=== PATIENT | female | born 1985 | race Caucasian/White ===

== ENCOUNTER 2019-05-18 16:00 | Observation (INO) | payer BC ==
[2019-05-18] MEDS ORDERED: MORPHINE SULFATE 2 MG INJ IV PRN (16:59)
[2019-05-18] MEDS ORDERED: Zofran 4 MG/2 ML VIAL IV PRN (17:00)
[2019-05-18] MEDS ORDERED: Sodium Chloride 0.9% 1000 ML 1,000 ML IV SCH (17:00)
[2019-05-18] MEDS ORDERED: BACTRIM DS TABLET PO ONE (19:39)
[2019-05-18 19:45] VITALS: BP 121/81; PULSE 107; O2SAT 96
[2019-05-18] MEDS ORDERED: BACTRIM DS TABLET PO SCH (20:00)
--- NOTE | 2019-05-19 09:02 | XRAY ---
Indication: Left abdomen pain 3 days. Possible obstruction. UTI. Hernia. Multiple contiguous axial images obtained through the abdomen and pelvis prior to and following 80 cc Isovue 370 contrast only. Comparison: None Lung bases are clear. Heart is not enlarged. Noncontrasted images demonstrates nonobstructing right renal punctate calculus. No other visceral calcifications/calculi. Noncontrasted stomach and bowel loops appear nonobstructed. Normal appendix. Mild scattered colonic diverticulosis without diverticulitis. A few bilateral ovary cysts, largest on the right measuring 2.6 cm. No free fluid/air. Postcontrast images demonstrates normal visceral enhancement and renal excretion. Liver is enlarged measuring 20 cm in CC dimension. Spleen is also enlarged measuring 16 cm in CC dimension. Remaining liver, gallbladder, pancreas, spleen, adrenal glands, kidneys, ureters, bladder, uterus, and aorta appear unremarkable. No pathologic retroperitoneal lymphadenopathy. Osseous structures intact. Impression: 1. Nonobstructing right renal micro-calculus. 2. Hepatosplenomegaly, colonic diverticulosis, and bilateral ovary cysts. 3. Remaining CT abdomen/pelvis with and without contrast exam is negative. CTDI 23.48
== END 2019-05-18 21:16 | disposition home or self-care (01) ==
LOC: MED SURG 16:04
PROVIDERS: ADMIT Family Medicine; ATTEND Family Medicine
DX: R10.9 Unspecified abdominal pain (principal); N39.0 Urinary tract infection, site not specified
CPT/HCPCS: 36415; 74178; 80053; 81015; 82150; 83690; 85025; 87086; G0378; A9270-GY

== ENCOUNTER 2021-01-13 08:48 | Emergency (ER) | payer BC ==
[2021-01-13] MEDS ORDERED: BABY ASPIRIN 81 MG CHEW PO ONE (09:06)
[2021-01-13] MEDS ORDERED: Ativan 2 MG/1 ML VIAL IV ONE (09:08)
--- NOTE | 2021-01-13 09:18 | ERPHSYRPT ---
- History of Present Illness Time Seen by Provider: 01/13/21 08:55 Historian: patient, family Exam Limitations: clinical condition Physician History: This is a 35-year-old white female who has a history of bipolar disorder and is on Adipex medication who presents with onset of chest pain last night. She began having perioral facial numbness and numbness in her hands this morning. The chest pain was worsening. Patient arrives to the emergency department extremely anxious and hyperventilating. She did start a new bipolar disorder medication approximately 1 week ago. Patient denies illicit drug use. Patient has a family history of blood clots. Patient did receive one baby aspirin prior to arrival. She has no known cardiac disease. Her chest pain is sharp substernal radiating up into her neck and into her back. Timing/Duration: yesterday Activities at Onset: none Quality: sharpness, stabbing Location: substernal Chest Pain Radiation: neck, back Severity of Pain-Max: moderate Severity of Pain-Current: mild Modifying Factors: Improves With: nothing Prior Chest Pain/Cardiac Workup: no prior chest pain, no prior cardiac workup Nitro Today/Relief: no nitro taken today Aspirin Treatment Today: 81 mg x 1, provided at home Allergies/Adverse Reactions: No Known Drug Allergies Allergy (Verified 01/13/21 09:18) Home Medications: Phentermine HCl [Adipex-P] 37.5 mg PO DAILY 01/13/21 [History] Venlafaxine HCl ER 37.5 mg [Effexor ER 37.5 MG] 37.5 mg PO DAILY 01/13/21 [History] Travel Risk - International Travel Have you traveled outside of the country in past 3 weeks: No - Coronavirus Screening Are you exhibiting any of the following symptoms?: No Close contact with a COVID-19 positive Pt in past 14-21 Days: No - Vaccine Status Have you recieved a Covid-19 vaccination: Yes [employer]: Moderna - Review of Systems Constitutional: No Symptoms Eyes: No Symptoms Ears, Nose, & Throat: No Symptoms Respiratory: Dyspnea Cardiac: Chest Pain Abdominal/Gastrointestinal: No Symptoms Genitourinary Symptoms: No Symptoms Musculoskeletal: No Symptoms Skin: No Symptoms Neurological: No Symptoms Psychological: No Symptoms Endocrine: No Symptoms Hematologic/Lymphatic: No Symptoms Immunological/Allergic: No Symptoms All Other Systems: Reviewed and Negative - Past Medical History Pertinent Past Medical History: Yes Neurological History: No Pertinent History ENT History: No Pertinent History Cardiac History: No Pertinent History Respiratory History: No Pertinent History Endocrine Medical History: No Pertinent History Musculoskeletal History: No Pertinent History GI Medical History: Other History: No Pertinent History Psycho-Social History: No Pertinent History Female Reproductive Disorders: Endometriosis Other Medical History: IBS, hernia - Past Surgical History Past Surgical History: Yes Neuro Surgical History: No Pertinent History Cardiac: No Pertinent History Respiratory: No Pertinent History Gastrointestinal: No Pertinent History Genitourinary: No Pertinent History Musculoskeletal: No Pertinent History Female Surgical History: Section Other Surgical History: Ovarian cyst removed, facial reconstruction - Social History Smoking Status: Current every day smoker How long have you smoked: 3 month Drug Use: none - Female History Hx Now: No - Nursing Vital Signs Nursing Vital Signs: Initial Vital Signs Temperature 98.2 F 01/13/21 08:51 Pulse Rate 110 H 01/13/21 08:51 Respiratory Rate 32 H 01/13/21 08:51 Blood Pressure 118/103 01/13/21 08:51 O2 Sat by Pulse Oximetry 100 01/13/21 08:51 Pain Scale Pain Intensity 0 - Physical Exam General Appearance: moderate distress, alert, anxiety, obese Eye Exam: PERRL/EOMI, eyes nml inspection Ears, Nose, Throat Exam: normal ENT inspection, moist mucous membranes Neck Exam: normal inspection, non-tender, supple, full range of motion Respiratory Exam: normal breath sounds, chest tenderness, lungs clear, airway intact, No respiratory distress Cardiovascular Exam: tachycardia Gastrointestinal/Abdomen Exam: soft, normal bowel sounds, No tenderness Pelvic Exam: not done Rectal Exam: not done Back Exam: normal inspection, normal range of motion, No CVA tenderness, No vertebral tenderness Neurologic Exam: alert, oriented x 3, cooperative, sap bw consultant II-XII nml as tested, normal mood/affect, nml cerebellar function, nml station & gait, sensation nml Skin Exam: normal color, warm, dry Lymphatic Exam: No adenopathy SpO2 Interpretation: normal O2 Delivery: Room Air - Course Nursing assessment & vital signs reviewed: Yes EKG Interpreted by Me: RATE ([id number]), Sinus Tach, NORMAL AXIS, NORMAL INTERVALS, NORMAL QRS, NORMAL ST-T, Other (Changes on today's EKG. There is no comparison EKG available) Ordered Tests: Active Orders 24 hr Category Date Time Status EKG-ER Only STAT Care 01/13/21 09:06 Active IV Insertion STAT Care 01/13/21 09:06 Active Pulse Oximetry (ED) STAT Care 01/13/21 09:06 Active CHEST 1 VIEW (PORTABLE) Stat Exams 01/13/21 09:07 Taken HEAD WITHOUT CONTRAST [CT] Stat Exams 01/13/21 09:09 Taken CBC W DIFF Stat Lab 01/13/21 09:05 Completed CMP Stat Lab 01/13/21 09:05 Completed D-DIMER QUANTITATIVE Stat Lab 01/13/21 09:05 Completed MAGNESIUM Stat Lab 01/13/21 09:05 Completed NT PRO BNP Stat Lab 01/13/21 09:05 Completed PROTIME WITH INR Stat Lab 01/13/21 09:05 Completed T4 (Thyroxine) Stat Lab 01/13/21 09:05 Completed TROPONIN Q3H Lab 01/13/21 09:05 Completed TROPONIN Q3H Lab 01/13/21 12:15 Ordered TROPONIN Q3H Lab 01/13/21 15:15 Ordered TROPONIN Q3H Lab 01/13/21 18:15 Ordered TROPONIN Q3H Lab 01/13/21 21:15 Ordered TSH, 3RD Generation Stat Lab 01/13/21 09:05 Completed UA W/RFX UR CULTURE Stat Lab 01/13/21 10:50 Completed Urine Triage Profile Stat Lab 01/13/21 11:05 Ordered Medication Summary Discontinued Medications Generic Name Dose Route Start Last Admin Trade Name Freq PRN Reason Stop Dose Admin Aspirin 162 mg 01/13/21 09:06 01/13/21 10:21 Baby Aspirin 81 Mg Chew PO 01/13/21 09:07 162 mg STAT ONE Administration Lorazepam 1 mg 01/13/21 09:08 01/13/21 09:22 Ativan 2 Mg/1 Ml Vial IV 01/13/21 09:09 1 mg STAT ONE Administration Lorazepam Confirm 01/13/21 09:20 Ativan 2 Mg/1 Ml Vial Administered 01/13/21 09:21 Dose 2 mg .ROUTE .STK-MED ONE Lab/Rad Data: Laboratory Result Diagrams 01/13/21 09:05 01/13/21 09:05 Laboratory Results 01/13/21 01/13/21 01/13/21 Range/Units 10:50 09:05 09:05 WBC (4.0-10.5) K/mm3 RBC (4.1-5.4) M/mm3 Hgb (12.0-16.0) gm/dl Hct (35-47) % MCV (78-100) fl MCH (26-32) pg MCHC (32-36) g/dl RDW (11.5-14.0) % Plt Count (150-450) K/mm3 MPV (7.5-11.0) fl Gran % (36.0-66.0) % Eos # (Auto) (0-0.5) Absolute Lymphs (auto) (1.0-4.6) Absolute Monos (auto) (0.0-1.3) Lymphocytes % (24.0-44.0) % Monocytes % (0.0-12.0) % Eosinophils % (0.00-5.0) % Basophils % (0.0-0.4) % Absolute Granulocytes (1.4-6.9) Basophils # (0-0.4) PT (9.95-12.35) SECONDS INR (0.8-3.0) D-Dimer (215-500) ng/mL Sodium (137-145) mmol/L Potassium (3.5-5.1) mmol/L Chloride (98-107) mmol/L Carbon Dioxide (22-30) mmol/L Anion Gap (5-15) MEQ/L BUN (7-17) mg/dL Creatinine (0.52-1.04) mg/dL Estimated GFR ML/MIN Glucose (74-106) mg/dL Calcium (8.4-10.2) mg/dL Magnesium 1.8 (1.6-2.3) mg/dL Total Bilirubin (0.2-1.3) mg/dL AST (14-36) U/L ALT (0-35) U/L Alkaline Phosphatase (38-126) U/L Troponin I < 0.012 (0.000-0.034) ng/mL NT-Pro-B Natriuret Pep (0-450) pg/mL Serum Total Protein (6.3-8.2) g/dL Albumin (3.5-5.0) g/dL Thyroxine (T4) 10.2 (5.53-10.96) ug/dL TSH 3rd Generation 5.020 H (0.47-4.68) mIU/L Urine Color YELLOW (YELLOW) Urine Appearance CLEAR (CLEAR) Urine pH 8.0 (5-6) Ur Specific [place] 1.010 (1.005-1.025) Urine Protein NEGATIVE (Negative) Urine Ketones NEGATIVE (NEGATIVE) Urine Blood SMALL (0-5) Ming/ul Urine Nitrite NEGATIVE (NEGATIVE) Urine Bilirubin NEGATIVE (NEGATIVE) Urine Urobilinogen NEGATIVE (0-1) mg/dL Ur Leukocyte Esterase NEGATIVE (NEGATIVE) Urine WBC (Auto) 0-2 (0-5) /HPF Urine RBC (Auto) NONE (0-2) /HPF U Epithel Cells (Auto) NONE (FEW) /HPF Urine Bacteria (Auto) NONE SEEN (NEGATIVE) /HPF Urine Mucus (Auto) SLIGHT (NEGATIVE) /HPF Urine Culture Reflexed NO (NO) Urine Glucose NEGATIVE (NEGATIVE) mg/dL 01/13/21 01/13/21 01/13/21 Range/Units 09:05 09:05 09:05 WBC 10.1 (4.0-10.5) K/mm3 RBC 5.34 (4.1-5.4) M/mm3 Hgb 14.5 (12.0-16.0) gm/dl Hct 45.8 (35-47) % MCV 85.8 (78-100) fl MCH 27.2 (26-32) pg MCHC 31.7 L (32-36) g/dl RDW 15.2 H (11.5-14.0) % Plt Count 336 (150-450) K/mm3 MPV 10.1 (7.5-11.0) fl Gran % 65.1 (36.0-66.0) % Eos # (Auto) 0.24 (0-0.5) Absolute Lymphs (auto) 2.61 (1.0-4.6) Absolute Monos (auto) 0.63 (0.0-1.3) Lymphocytes % 25.8 (24.0-44.0) % Monocytes % 6.2 (0.0-12.0) % Eosinophils % 2.4 (0.00-5.0) % Basophils % 0.5 (0.0-0.4) % Absolute Granulocytes 6.60 (1.4-6.9) Basophils # 0.05 (0-0.4) PT 13.3 H (9.95-12.35) SECONDS INR 1.18 (0.8-3.0) D-Dimer 226 (215-500) ng/mL Sodium 139 (137-145) mmol/L Potassium 4.8 (3.5-5.1) mmol/L Chloride 103 (98-107) mmol/L Carbon Dioxide 20 L (22-30) mmol/L Anion Gap 19.6 H (5-15) MEQ/L BUN 7 (7-17) mg/dL Creatinine 0.73 (0.52-1.04) mg/dL Estimated GFR > 60.0 ML/MIN Glucose 103 (74-106) mg/dL Calcium 9.6 (8.4-10.2) mg/dL Magnesium (1.6-2.3) mg/dL Total Bilirubin 0.50 (0.2-1.3) mg/dL AST 24 (14-36) U/L ALT 18 (0-35) U/L Alkaline Phosphatase 82 (38-126) U/L Troponin I (0.000-0.034) ng/mL NT-Pro-B Natriuret Pep 501 H (0-450) pg/mL Serum Total Protein 6.8 (6.3-8.2) g/dL Albumin 4.2 (3.5-5.0) g/dL Thyroxine (T4) (5.53-10.96) ug/dL TSH 3rd Generation (0.47-4.68) mIU/L Urine Color (YELLOW) Urine Appearance (CLEAR) Urine pH (5-6) Ur Specific [place] (1.005-1.025) Urine Protein (Negative) Urine Ketones (NEGATIVE) Urine Blood (0-5) Ming/ul Urine Nitrite (NEGATIVE) Urine Bilirubin (NEGATIVE) Urine Urobilinogen (0-1) mg/dL Ur Leukocyte Esterase (NEGATIVE) Urine WBC (Auto) (0-5) /HPF Urine RBC (Auto) (0-2) /HPF U Epithel Cells (Auto) (FEW) /HPF Urine Bacteria (Auto) (NEGATIVE) /HPF Urine Mucus (Auto) (NEGATIVE) /HPF Urine Culture Reflexed (NO) Urine Glucose (NEGATIVE) mg/dL - Progress Progress: improved, re-examined Air Movement: good Progress Note: 06/06/21 10:25 CAT scan of the head shows no acute intracranial abnormality. Chest x-ray shows no acute cardiopulmonary process. Blood Culture(s) Obtained: No Antibiotics given: No Counseled pt/family regarding: lab results, diagnosis, need for follow-up, rad results - Departure Departure Disposition: Home Clinical Impression: Chest pain Condition: Stable Critical Care Time: No Referrals: ARETHA WAGONER MD [Primary Care Provider] - Additional Instructions: Call your prescribing doctor tomorrow to discuss your medications and the possibility of any drug interactions.
[2021-01-13] MEDS ORDERED: Ativan 2 MG/1 ML VIAL ONE (09:20)
[2021-01-13 09:55] LABS: BASOPHIL % 0.5 % (0.0-0.4); Basophil (Absolute #) 0.05 (0-0.4); Eosinophil % 2.4 % (0.00-5.0); Eosinophil (Absolute #) 0.24 (0-0.5); Hematocrit 45.8 % (35-47); Hemoglobin 14.5 gm/dl (12.0-16.0); Lymphocyte (Absolute #) 2.61 (1.0-4.6); Lymphocytes % 25.8 % (24.0-44.0); Mean Cell Volume 85.8 fl (78-100); Mean Corpuscular Hemoglobin 27.2 pg (26-32); Mean Corpuscular Hgb Concent. 31.7 g/dl (32-36); Mean Platelet Volume 10.1 fl (7.5-11.0); Monocyte (Absolute #) 0.63 (0.0-1.3); Monocytes % 6.2 % (0.0-12.0); Neutrophil % 65.1 % (36.0-66.0); Platelet Count 336 K/mm3 (150-450); Red Blood Count 5.34 M/mm3 (4.1-5.4); Red Cell Distribution Width 15.2 % (11.5-14.0); White Blood Count 10.1 K/mm3 (4.0-10.5)
[2021-01-13 10:03] LABS: INR 1.18 (0.8-3.0); PROTIME 13.3 SECONDS (9.95-12.35)
[2021-01-13 10:17] LABS: ALBUMIN 4.2 g/dL (3.5-5.0); ALKALINE PHOSPHATASE 82 U/L (38-126); ANION GAP 19.6 MEQ/L (5-15); BLOOD UREA NITROGEN 7 mg/dL (7-17); CHLORIDE 103 mmol/L (98-107); Calcium 9.6 mg/dL (8.4-10.2); Carbon Dioxide 20 mmol/L (22-30); Creatinine 1 0.73 mg/dL (0.52-1.04); EST GLOMERULAR FILTRATION RATE > 60.0 ML/MIN; Glucose 103 mg/dL (74-106); NT PRO BNP 501 pg/mL (0-450); Potassium 4.8 mmol/L (3.5-5.1); SGOT/AST 24 U/L (14-36); SGPT/ALT 18 U/L (0-35); SODIUM 139 mmol/L (137-145); Total Protein 6.8 g/dL (6.3-8.2)
[2021-01-13 10:39] LABS: MAGNESIUM 1.8 mg/dL (1.6-2.3); T4 (Thyroxine) 10.2 ug/dL (5.53-10.96); TSH, 3RD Generation 5.02 mIU/L (0.47-4.68)
[2021-01-13 11:02] LABS: Appearance CLEAR (CLEAR); Bilirubin NEGATIVE (NEGATIVE); Blood SMALL Ery/ul (0-5); Glucose NEGATIVE (NEGATIVE); Ketones NEGATIVE (NEGATIVE); Leukocyte Esterase NEGATIVE (NEGATIVE); Mucus SLIGHT /HPF (NEGATIVE); Nitrite NEGATIVE (NEGATIVE); Protein,Urine Dip NEGATIVE (Negative); Urobilinogen NEGATIVE mg/dL (0-1); WBC 0-2 /HPF (0-5)
[2021-01-13 11:03] LABS: Bacteria NONE SEEN /HPF (NEGATIVE)
[2021-01-13 11:05] VITALS: BP 136/98; PULSE 103; O2SAT 99
[2021-01-13 11:23] LABS: Amphetamine,Urine NEGATIVE (NEGATIVE); Barbiturate,Urine NEGATIVE (NEGATIVE); Benzodiazepine,Urine NEGATIVE (NEGATIVE); Cocaine,Urine NEGATIVE (NEGATIVE); Methadone,Urine NEGATIVE (NEGATIVE); Opiate,Urine NEGATIVE (NEGATIVE); PCP,Urine NEGATIVE (NEGATIVE); THC,Urine NEGATIVE (NEGATIVE)
--- NOTE | 2021-01-13 19:10 | XRAY ---
Indication: Chest pain. Comparison: None Portable chest demonstrates normal heart and lungs. Bony thorax intact.
--- NOTE | 2021-01-13 19:12 | XRAY ---
Indication: Facial and bilateral upper extremity numbness. Chest pain. Multiple contiguous axial images obtained through the head without contrast. Comparison: None Normal appearing brain parenchyma, ventricles, and bony calvarium. Visualized paranasal sinuses and mastoid air cells are clear. Incidental left anterior maxillary sinus wall fixation plate/screws. Impression: Normal CT head without contrast exam. Comment: Preliminary interpretation was made by [facility]. No critical discrepancy.
== END 2021-01-13 11:17 | disposition home or self-care (01) ==
LOC: ED 08:48
DX: R07.9 Chest pain, unspecified (principal)
CPT/HCPCS: 36000; 36415; 70450; 71045; 80053; 80307; 81001; 83735; 83880; 84436; 84443; 84484; 85025; 85379; 85610; 93005; 94760; 96374; 99284; J2060; A9270-GY

== ENCOUNTER 2021-10-14 06:11 | Day surgery (SDC) | payer OTHER ==
[2021-10-14] MEDS ORDERED: Lactated Ringers 1,000 ML IV SCH (06:30)
[2021-10-14] MEDS ORDERED: Xylocaine-Mpf 2% 5 Ml Vial ONE (08:11)
[2021-10-14] MEDS ORDERED: DIPRIVAN 200 MG/20 ML IV ONE ×2 (08:11→08:26)
[2021-10-14 09:30] VITALS: O2SAT 98
[2021-10-14 09:34] VITALS: BP 138/78; PULSE 80
--- NOTE | 2021-10-14 14:37 | OP ---
SURGERY DATE/TIME: 10/14/2021 0811 PREOPERATIVE DIAGNOSIS: Chronic diarrhea. POSTOPERATIVE DIAGNOSIS: Normal colon. PROCEDURE: Colonoscopy. SURGEON: Dr. Newton. ANESTHESIA: MAC. Medications given by anesthesia department. HISTORY: The patient is a 35-year-old white female reports she has had diarrhea for the past ten years. The patient reports it is greater than 10 to 15 stools a day. She also recently had a positive SCAR test and it was felt that she needed to have endoscopic evaluation. The patient was appraised of the risks of the procedure including the risk of perforation, phlebitis, untoward reaction to medication, bleeding and missed lesions. The patient verbalized her understanding and desired to have the procedure performed. DESCRIPTION OF PROCEDURE: The patient was given the medications by the anesthesia department. She had continuous pulse oximetry, ECG monitoring, intermittent blood pressure monitoring during the examination. She was placed in the left lateral decubitus position. A digital rectal examination was performed and revealed normal anal sphincter tone and no masses. The flexible Olympus pediatric colonoscope was used to intubate the rectum. A view of the colon was developed sequentially to the cecum including a short distance into the terminal ileum. Upon insertion and withdrawal, including a retroflex view in the rectum, no mucosal lesions were encountered. The scope was removed from the patient who tolerated the procedure well and was sent back to OP recovery in good condition. The prep was noted to be good.
== END 2021-10-14 09:35 | disposition home or self-care (01) ==
LOC: SDC 06:11
PROVIDERS: ATTEND Family Medicine
DX: K52.9 Noninfective gastroenteritis and colitis, unspecified (principal)
CPT/HCPCS: J2704